=== PATIENT | male | born 2000 | race Caucasian/White ===

== ENCOUNTER 2019-10-13 22:33 | Emergency (ER) | payer OTHER ==
[~2019-10-13] VITALS: Ht 165.1 cm; Wt 86.2 kg
[2019-10-13 22:39] VITALS: BP 131/71
--- NOTE | 2019-10-13 22:42 | NUR ---
PT AMBULATED TO LOBBY WITH STEADY GAIT
--- NOTE | 2019-10-13 23:10 | NUR ---
PT AMBULATED TO BED 4.
--- NOTE | 2019-10-13 23:30 | NUR ---
19 Y/O MALE C/O OF BUG BITE ON RIGHT CALF. PATIENT STATES IT IS A 5/10 NON-RADIATING ACUTE PAIN. PER PATIENT, "I DON'T KNOW WHERE IT CAME FROM, BUT I SEEM TO ALWAYS HAVE BUG BITES". DENIES N/V/D/FEVER/CHILLS. RIGHT LEG HAS APPROXIMATELY 3CM ERYTHEMATOUS BUG BITE; NON TENDER UPON PALPATION; SLIGHTLY ERMD MADE AWARE. AT BEDSIDE. SIDE RAILSX1. PMH:DENIES RX:DENIES ALLERGIES: PCNS
[2019-10-13] MEDS ORDERED: SULFAMETH/TRIMETH DS 800/160MG 1 TAB PO ONE (23:55)
[2019-10-13] MEDS ORDERED: IBUPROFEN 800 MG TAB PO ONE (23:55)
[2019-10-13] MEDS ORDERED: CEPHALEXIN 500 MG CAP PO ONE (23:55)
[2019-10-14 00:44] VITALS: BP 128/69
--- NOTE | 2019-10-14 00:44 | NUR ---
Patient discharged with v/s stable. Written and verbal after care instructions given and explained. Patient alert, oriented and verbalized understanding of instructions. Ambulatory with steady gait. All questions addressed prior to discharge. ID band removed. Patient advised to follow up with PMD. Rx of MOTRIN; KEFLEX; BACTRIM given. Patient educated on indication of medication including possible reaction and side effects. Opportunity to ask questions provided and answered.
== END 2019-10-14 00:44 | disposition home or self-care (01) ==
LOC: EDBD 22:33 → MED 22:33
DX: L03.115 Cellulitis of right lower limb (principal); W57.XXXA Bitten or stung by nonvenomous insect and other nonvenomous arthropods, initial encounter; Y93.89 Activity, other specified; Y92.89 Other specified places as the place of occurrence of the external cause; Y99.8 Other external cause status
CPT/HCPCS: 99284